=== PATIENT | female | born 1950 | race Hispanic/Latino ===

== ENCOUNTER 2022-11-19 23:07 | Emergency (ER) | payer OTHER, MEDICARE ==
[~2022-11-19] VITALS: Ht 162.6 cm; Wt 105.2 kg
[2022-11-20] MEDS ORDERED: LISINOPRIL 20 MG TABLET PO ONE
[2022-11-20] MEDS ORDERED: MORPHINE 4 MG SYG IM ONE
[2022-11-20] MEDS ORDERED: MORPHINE 2 MG SYG ONE (02:16)
[2022-11-20] MEDS: MORPHINE 4 MG SYG IM PRN ×2 (02:24→02:25)
[2022-11-20] MEDS ORDERED: ACET-2079 PO (03:23)
[2022-11-20 03:45] VITALS: BP 144/79
== END 2022-11-20 03:56 | disposition home or self-care (01) ==
LOC: EDH 23:07
DX: S52.692A Other fracture of lower end of left ulna, initial encounter for closed fracture (principal); S52.592A Other fractures of lower end of left radius, initial encounter for closed fracture; I10 Essential (primary) hypertension; M19.90 Unspecified osteoarthritis, unspecified site; Z90.49 Acquired absence of other specified parts of digestive tract; W18.39XA Other fall on same level, initial encounter; Y93.89 Activity, other specified; Y92.89 Other specified places as the place of occurrence of the external cause; Y99.8 Other external cause status
CPT/HCPCS: 99284; 96372 ×2; 73110; 73030; 29125; J2270 ×2